=== PATIENT | female | born 1985 ===

== ENCOUNTER 2016-08-13 10:46 | Inpatient (IN) | payer OTHER ==
[~2016-08-13] VITALS: Ht 172.7 cm; Wt 63.5 kg
[2016-08-13] MEDS ORDERED: PRENATAL TABLE1 EAC2 PO (14:44)
[2016-08-13 14:46] VITALS: BP 105/67
[2016-08-13 15:54] LABS: ABSOLUTE BASOPHIL COUNT 0 /CUMM (0.0-0.2); ABSOLUTE EOSINOPHIL COUNT 0.1 /CUMM (0.0-0.7); ABSOLUTE GRANULOCYTE CT 7.5 /CUMM (1.4-6.5); ABSOLUTE LYMPH COUNT 2.2 /CUMM (1.2-3.4); ABSOLUTE MONOCYTE COUNT 0.8 /CUMM (0.10-0.60); BASOPHIL % 0.2 % (0.0-2.0); EOSINOPHIL % 1.3 % (0-5); GRANULOCYTE % 70.1 % (42.2-75.2); HEMATOCRIT 37.1 % (37-47); MEAN CORPUSCULAR HGB 30.7 PG (27.0-31.0); MEAN CORPUSCULAR VOLUME 90.3 FL (81.0-99.0); PLATELET COUNT 190 /CUMM (130-400); RBC DISTRIBUTION WIDTH 13.8 % (11.5-14.5); RED BLOOD CELL CT 4.11 /CUMM (4.20-5.40); WHITE BLOOD CELL COUNT 10.8 /CUMM (4.8-10.8)
--- NOTE | 2016-08-13 23:19 | Labor & Delivery Summary ---
Delivery Summary Vaginal Delivery: Vaginal: vertex Episiotomy/Lacerations: Episiotomy/Lacerations: 2nd degree Anesthesia: local - nesacaine 25ml Placenta: Placenta: spontanteous, normal, 3 vessel, nuchal cord (x_) (x1) Anesthesia: none Baby's Weight: pending Apgars - 1 Min: 9 Apgars - 5 Min: 9 Additional Comments: Pt initially presented for spotting this am. h/o cervical exam 2 days prior. Exam and FHR tracing reassuring. Pt 3cm. observed x 4 hours then ruptured membranes spontaneously. confirmed with amnisure. The patient was observed throughout the day. She finally became uncomfortable at 2153. She changed her cervix to 4 cm and 80% effacement. 10 minutes later I received phone call that she had ruptured a fore bag spontaneously. Upon my arrival she was 8 cm and 100 %. She pushed 3 contractions and delivered head spontaneously without complications. Shoulders and the body of the were delivered without difficulty. The was then dried and stimulated and bulb suctioned. Infant was placed on the maternal abdomen and cord clamped and cut after 30 seconds. Second-degree laceration was repaired in the usual fashion with Nesacaine as local anesthetic. Patient tolerated procedures well.
--- NOTE | 2016-08-13 23:36 | History & Physical ---
General Information and HPI MD Statement: I have seen and personally examined NICOLE NUNEZ and documented this H&P. The patient is a 31 year old female at [38] weeks and for days gestation who presented with a chief complaint of [spotting.]. Source of Information: patient Exam Limitations: no limitations History of Present Illness: This patient is a 31-year-old 2 para 1001 at 38 weeks and 4 days who presents initially for spotting this morning. She had a history of the cervical exam 2 days prior. On examination heart rate tracing was reassuring and her exam was nonfocal. There was no active bleeding. Cervix had been unchanged from the office and was 3 cm. She is a history of a precipitous delivery and was therefore observed for several hours. The end of her observation she spontaneously ruptured her membranes. Admission was positive. Fluid was clear. The patient was observed throughout the day. She became uncomfortable around 9 :30. She was examined by the nurse and found to be 4 cm and 80% effaced. 4 bag spontaneously ruptured shortly afterward and she was 5 cm, 100%. Upon my arrival she was 8 cm. She delivered shortly thereafter afterward [facility]. 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 7 oz. male infant. 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 EENTM: Reports: no symptoms. Cardiovascular: Reports: no symptoms. Respiratory: Reports: no symptoms. GI: Reports: no symptoms. Genitourinary: Denies: see HPI. Musculoskeletal: Reports: no symptoms. Skin: Reports: no symptoms. Neurological/Psychological: Reports: no symptoms. Hematologic/Endocrine: Reports: no symptoms. Immunologic/Allergic: Reports: no symptoms. Exam & Diagnostic Data Last 24 Hrs of Vital Signs/I&O Vital Signs Date Time Temp Pulse Resp B/P B/P Pulse O2 O2 Flow FiO2 Mean Ox Delivery Rate 08/13 1446 105/67 Intake & Output 08/13 1600 08/13 0800 08/13 0000 Intake Total Output Total Balance Patient 140 lb Weight Obstetric Exam Wgt Gained During : 30 Pelvimetry: adequate, proven to 8'7" Dilation (cm): 4 Effacement (%): 80 Station: 10 Membranes: SROM Fluid: clear Fundal Height (cm): 38 Multiple Gestation? No Contractions: q3-5 #1 - FHR Baseline: 140 Category: 1 Estimated Weight: 7 Presentation: vtx Patient for Induction? No Physical Exam General Appearance Alert, Oriented X3, Cooperative, No Acute Distress Cardiovascular Regular Rate, Normal S1, Normal S2, No Murmurs Lungs Clear to Auscultation, Normal Air Movement Reproductive (FEMALE) Normal female genitalia Labs Blood Type & Rh: A+ Antibody Screen: Negative Hct/Hgb & Platelets #1: 12.4, 36.7, 273 Hct/Hgb & Platelets #2: 12.1, 38.1, 187 Rubella: Immune VDRL #1: Negative VDRL #2: Negative HbsAg: Negative HIV #1: Negative HIV #2 Negative 1 Hr P to Group B Strep: Negative Initial Ultrasound: 8 weeks and 1 day Anatomy Ultrasound: At 20 weeks, normal growth, normal anatomy, XY, posterior placenta Ultrasound for EFW: 37 and 1 weeks EFW of 26 percentile Genetic Testing: Negative hemoglobin electrophoresis, Assessment/Plan Assessment/Plan: This patient is a 31-year-old 2 para 1001 at 38 weeks and 6 days who spontaneously ruptured her membranes. She was admitted and observed initially. Ultimately around 2129 she became more uncomfortable and ruptured her for bag and delivered shortly there afterword. Please see delivery note. Her has been unremarkable with exception of a few slightly elevated diastolic blood pressures of 90s. She was evaluated twice in the childbirth center during her and had negative workup for preeclampsia. During her labor should normal blood pressures. Placenta sent for pathology. As Ranked By This Provider Problem List: 1. Core Measures/Miscellaneous Venous Thromboembolism VTE Risk Factors: / VTE Contraindications: No Contraindications VTE Diagnosis: No Beta Anthony Is Beta Anthony a Home Med? No Antibiotics Is Patient on Antibiotics? No Attending MD Review Statement Attending Statement Attending MD Statement: examined this patient, discussed with family, discussed w/nursing
[2016-08-14 09:33] LABS: ABSOLUTE BASOPHIL COUNT 0 /CUMM (0.0-0.2); ABSOLUTE EOSINOPHIL COUNT 0.1 /CUMM (0.0-0.7); ABSOLUTE GRANULOCYTE CT 10.7 /CUMM (1.4-6.5); ABSOLUTE LYMPH COUNT 1.8 /CUMM (1.2-3.4); ABSOLUTE MONOCYTE COUNT 0.7 /CUMM (0.10-0.60); BASOPHIL % 0.2 % (0.0-2.0); EOSINOPHIL % 0.5 % (0-5); GRANULOCYTE % 80.3 % (42.2-75.2); HEMATOCRIT 32.5 % (37-47); MEAN CORPUSCULAR HGB CONC 34.3 G/DL (33.0-37.0); MEAN CORPUSCULAR VOLUME 90.2 FL (81.0-99.0); MEAN PLATELET VOLUME 10.6 FL (7.4-10.4); PLATELET COUNT 170 /CUMM (130-400); RBC DISTRIBUTION WIDTH 13.9 % (11.5-14.5); RED BLOOD CELL CT 3.61 /CUMM (4.20-5.40); WHITE BLOOD CELL COUNT 13.3 /CUMM (4.8-10.8)
--- NOTE | 2016-08-14 12:14 | PN- OBGYN ---
Surgical Brief Attending Note Brief Attending Note: NO COMPLAINTS . DOING WELL. +AMBULATING, VOIDING, TOLERATING PAIN AND PO. + NURSING. APPROPRIATE LOCHIA. VSSAF Laboratory Tests 08/14/16 0835: CBC w Diff NO MAN DIFF REQ, RBC 3.61 L, MCV 90.2, MCH 31.0, RDW 13.9, MPV 10.6 H, Gran % 80.3 H, Lymphocytes % 13.8 L, Eosinophils % 0.5, Basophils % 0.2, Absolute Granulocytes 10.7 H, Absolute Lymphocytes 1.8, Absolute Monocytes 0.7 H, Absolute Eosinophils 0.1, Absolute Basophils 0, PUBS MCHC 34.3 08/13/16 1530: CBC w Diff NO MAN DIFF REQ, RBC 4.11 L, MCV 90.3, MCH 30.7, RDW 13.8, MPV 10.0, Gran % 70.1, Lymphocytes % 20.9, Monocytes % 7.5, Eosinophils % 1.3, Basophils % 0.2, Absolute Granulocytes 7.5 H, Absolute Lymphocytes 2.2, Absolute Monocytes 0.8 H, Absolute Eosinophils 0.1, Absolute Basophils 0, PUBS MCHC 34.0, Urine Color YEL, Urine Clarity CLEAR, Urine pH 6.0, Ur Specific [place] 1.010, Urine Protein NEG, Urine Ketones NEG, Urine Nitrite NEG, Urine Bilirubin NEG, Urine Urobilinogen 0.2, Ur Leukocyte Esterase NEG, Ur Microscopic SEDIMENT EXAMINED, Urine RBC RARE, Urine WBC 1-3 H, Ur Epithelial Cells FEW, Urine Bacteria FEW H , Urine Hemoglobin SMALL H, Urine Glucose NEG 08/13/16 1354: Membrane Rupture POSITIVE A/P PPD 1. DOING WELL. ROUTINE PP CARE. COUNSELED ON CIRC.
[2016-08-15] MEDS ORDERED: IBUPROFEN800 M1 PO (09:14)
--- NOTE | 2016-08-15 09:17 | PN- OBGYN ---
Surgical Brief Attending Note Brief Attending Note: PPD#2 pt is resting in bed, no complaints. tolerate diet , void without difficulties PE: VSS CV RRR Lungs CTA B/L Abdomen: soft, nontender, uterus firm, fundus below umbilicus. lochia mild Ext: DCT (-) A/P: 31yo, s/p , PPD #2 1. encourage ambulation and . 2.RT PP care 3. will d/c home , f/u in office in 2 wks and 6 wks
== END 2016-08-15 11:20 | DRG 775 ==
LOC: CBCO 10:46 → GNO 14:24
PROVIDERS: ADMIT Obstetrics & Gynecology
PROC: 10E0XZZ Delivery of Products of Conception, External Approach (ICD-10-PCS; principal; 2016-08-13)
PROC: 0KQM0ZZ Repair Perineum Muscle, Open Approach (ICD-10-PCS; principal; 2016-08-13)
DX: O69.81X0 Labor and delivery complicated by cord around neck, without compression, not applicable or unspecified (principal); O70.1 Second degree perineal laceration during delivery; Z3A.38 38 weeks gestation of pregnancy; Z37.0 Single live birth
CPT/HCPCS: GNOP; GNOS; 36415; 81001; 84112; 88307; G0463; J2405; J7120